=== PATIENT | female | born 1950 | race Caucasian/White ===

== ENCOUNTER 2020-01-12 15:36 | Outpatient (CLI) | payer MEDICARE, OTHER ==
[2020-01-12 18:35] LABS: BASOPHILS % (AUTO) 0.8 %; EOSINOPHILS # (AUTO) 0.1 10^3/uL (0.0-0.7); EOSINOPHILS % (AUTO) 2.3 %; HGB - HEMOGLOBIN 12.6 g/dL (12.0-16.0); LYMPHOCYTES # (AUTO) 1.9 10^3/uL (1.5-3.5); LYMPHOCYTES % (AUTO) 39.2 %; MEAN CORPUSCULAR HEMOGLOBIN 31.6 pg (27.0-31.0); MEAN CORPUSCULAR HGB CONC 32.9 g/dL (32.0-36.0); MEAN PLATELET VOLUME 10.5 fL (7.9-10.8); MONOCYTES # (AUTO) 0.3 10^3/uL (0.0-1.0); MONOCYTES % (AUTO) 6.9 %; NEUTROPHILS # (AUTO) 2.4 10^3/uL (1.5-6.6); NEUTROPHILS % (AUTO) 50.4 %; PLT - PLATELET COUNT 265 10^3/uL (130-450); RED BLOOD COUNT 3.99 10^6/uL (4.20-5.40); RED CELL DISTRIBUTION WIDTH 13.2 % (12.0-15.0); WHITE BLOOD COUNT 4.8 x10^3/uL (4.8-10.8)
[2020-01-12 19:03] LABS: ALBUMIN 4.7 g/dL (3.2-5.5); ALBUMIN/GLOBULIN RATIO 2.1 (1.0-2.2); BILIRUBIN,TOTAL 0.8 mg/dL (0.2-1.0); CREATININE 0.8 mg/dL (0.4-1.0); TOTAL PROTEIN 6.9 g/dL (6.7-8.2)
== END 2020-01-12 23:59 | disposition home or self-care (01) ==
LOC: LAB.WCP 15:36
PROVIDERS: ATTEND Physician Assistant
DX: I10 Essential (primary) hypertension (principal); E83.119 Hemochromatosis, unspecified
CPT/HCPCS: 36415; 80053; 82728; 83540; 84466; 85025

== ENCOUNTER 2020-04-29 12:26 | Outpatient (CLI) | payer MEDICARE, OTHER ==
--- NOTE | 2020-05-14 09:43 | Mammography Report ---
BILATERAL DIGITAL SCREENING MAMMOGRAM 3D/2D WITH CAD: 04/29/2020 CLINICAL: Routine screening. Comparison: 04/10/19, 03/29/17, 03/12/16, 01/25/15. There are scattered fibroglandular elements in both breasts. Current study was also evaluated with a Computer Aided Detection (CAD) system. No significant masses, calcifications, or other findings are seen in either breast. IMPRESSION: NEGATIVE There is no mammographic evidence of malignancy. A 1 year screening mammogram is recommended. This exam was interpreted at Station ID: [id number]. NOTE: For mammograms, a report in lay terms will be sent to the patient. Approximately 15% of breast malignancies will not be visualized mammographically. In the management of a palpable breast mass, a negative mammogram must not discourage biopsy of a clinically suspicious lesion. Electronically Signed By: Khari Ames M.D. aty/:05/13/2020 14:04:43 ACR BI-RADS Category 1: Negative 3341F PARENCHYMAL PATTERN: (A) - The breast(s) demonstrate(s) scattered fibroglandular densities. BI-RADS CATEGORY: (1) - 1 RECOMMENDATION: (ANNUAL) - Recommend routine annual screening mammography. [id number] 1 year screening LATERALITY: (B)
== END 2020-04-29 12:27 | disposition home or self-care (01) ==
LOC: DI 12:26
DX: Z12.31 Encounter for screening mammogram for malignant neoplasm of breast (principal)
CPT/HCPCS: 77063; 77067

== ENCOUNTER 2020-06-12 09:38 | Outpatient (CLI) | payer MEDICARE, OTHER ==
--- NOTE | 2020-06-12 11:36 | XRAY Report ---
Reason: LEFT HIP PAIN Procedure Date: 06/12/2020 Accession Number: [id number] / [id number] Procedure: WCP - Hip 1 View LT CPT Code: Final Report FULL RESULT: PROCEDURE: Hip 1 View LT INDICATIONS: LEFT HIP PAIN TECHNIQUE: 2 views of the hip were acquired. COMPARISON: Lumbosacral spine plain film same day. FINDINGS: Bones: No fractures or dislocations. Note is made of symmetric hip joint osteoarthritis, mild bilaterally. No suspicious bony lesions. The visualized pelvic ring appears intact. Soft tissues: No suspicious soft tissue calcifications or masses are seen within the abdomen. At the pelvis was likely is dystrophic calcifications within midline uterine fibroids are present. Alternatively, bladder calculus could produce this appearance. IMPRESSION: Symmetric mild hip joint osteoarthritis, no trauma found. There are midline low pelvic calcifications, of uncertain etiology but potentially from uterine fibroids or bladder calculi. Reviewed by: Ki Terrell MD on 06/12/2020 11:34 AM PDT Approved by: Ki Terrell MD on 06/12/2020 11:34 AM PDT Station ID: [id number]
--- NOTE | 2020-06-12 11:39 | XRAY Report ---
Reason: LUMBAR BACK PAIN Procedure Date: 06/12/2020 Accession Number: [id number] / [id number] Procedure: WCP - Lumbar Spine 2 View CPT Code: Final Report FULL RESULT: PROCEDURE: Lumbar Spine 2 View INDICATIONS: LUMBAR BACK PAIN TECHNIQUE: 2 views of the lumbar spine were acquired. COMPARISON: None. FINDINGS: Bones: 5 [id number] vertebrae are present. There is normal bony alignment. No vertebral body compression fractures. No suspicious bony lesions. Note is made of only a minimal degree of degenerative disc height reduction but facet osteoarthritis is moderate to moderately severe over the middle and lower thirds of the lumbosacral spine, respectively. This allows slight anterolisthesis of L4 on L5 and L5 on S1.. Soft tissues: Overlying bowel gas pattern is normal. No suspicious soft tissue calcifications. IMPRESSION: Minimal degenerative disc disease but facet osteoarthritis is moderate to moderately severe over the middle and lower thirds of the lumbosacral spine, respectively. Spinal and foraminal stenosis would likely be present at L5-S1 by appearance. Reviewed by: Ki Terrell MD on 06/12/2020 11:38 AM PDT Approved by: Ki Terrell MD on 06/12/2020 11:38 AM PDT Station ID: [id number]
== END 2020-06-12 23:59 | disposition home or self-care (01) ==
LOC: DI.WCP 09:38
PROVIDERS: ATTEND Family Medicine
DX: M16.12 Unilateral primary osteoarthritis, left hip (principal); M51.36 Other intervertebral disc degeneration, lumbar region; M47.816 Spondylosis without myelopathy or radiculopathy, lumbar region; M47.817 Spondylosis without myelopathy or radiculopathy, lumbosacral region; M43.17 Spondylolisthesis, lumbosacral region; M43.16 Spondylolisthesis, lumbar region
CPT/HCPCS: 72100

== ENCOUNTER 2020-08-09 13:39 | Outpatient (CLI) | payer MEDICARE, OTHER | END 2020-08-09 23:59 | disposition home or self-care (01) | LOC: LAB.WCP 13:39 | PROVIDERS: ATTEND Physician Assistant Medical | DX: E83.119 Hemochromatosis, unspecified (principal) | CPT/HCPCS: 36415; 82728 ==

== ENCOUNTER 2020-08-19 16:59 | Emergency (ER) | payer MEDICARE, OTHER ==
--- NOTE | 2020-08-19 17:03 | ED Physician Documentation ---
PD HPI UPPER EXT INJURY - Stated complaint Stated Complaint: R ARM PAIN,FALL - History obtained from History obtained from: Patient - History of Present Illness Location: Right, Forearm, Wrist, Other (also struck face on groound.) Type of injury: Fall (She is out for a walk with her and tripped on a uneven ground spot and fell forward onto her right outstretched hand and did strike her face.) Where injury occurred: [place] Tim[place] - onset: Today Timing - details: Abrupt onset Worsened by: Moving (right wrist and forearm, mainly hurts with supination.), Palpating Contributing factors: No: Anticoagulated, Work related Similar symptoms before: Has not had sx before Review of Systems Constitutional: denies: Fever Nose: denies: Rhinorrhea / runny nose, Congestion Throat: denies: Dental pain / toothache, Sore throat Cardiac: denies: Chest pain / pressure GI: denies: Abdominal Pain Neurologic: denies: Focal weakness, Numbness, Altered mental status, Headache (just sore at abraded area of forehead), LOC PD PAST MEDICAL HISTORY - Past Medical History Past Medical History: No - Present Medications Home Medications: Ambulatory Orders Medication Instructions Recorded Confirmed Chlorthalidone 25 mg ORAL BID 08/19/20 08/19/20 Meloxicam [Mobic] 15 mg PO DAILY 08/19/20 08/19/20 Naproxen [Naprosyn] 500 mg PO BID PRN 08/19/20 08/19/20 Pantoprazole [Protonix] 40 mg PO DAILY 08/19/20 08/19/20 Solifenacin Succinate [Vesicare] 10 mg ORAL DAILY 08/19/20 08/19/20 - Allergies Allergies/Adverse Reactions: Allergies Allergy/AdvReac Type Severity Reaction Status Date / Time Sulfa (Sulfonamide Allergy Hives Verified 08/19/20 17:03 Antibiotics) PD ED PE NORMAL - Vitals Vital signs reviewed: Yes - General General: Alert and oriented X 3, Well developed/nourished - HEENT HEENT: PERRL, EOMI, Dentition benign, Other (abrasion upper lip and forehead. No loose teeth. ) - Neck Neck: Supple, no meningeal sign, No bony TTP - Derm Derm: Normal color, Warm and dry - Extremities Extremities: Other (There is an abrasion on the palm of the right hand. No tenderness in the hand itself. There is some tenderness on the radial side of the dorsal wrist and distal forearm. The elbow is not tender and there is no tenderness or effusion at the radial head. Passive range of motion less painful. ) - Neuro Neuro: Alert and oriented X 3, No motor deficit, No sensory deficit Eye Opening: Spontaneous Motor: Obeys Commands Verbal: Oriented GCS Score: 15 Results - Vitals Vitals: Oxygen O2 Source Room air - Rads (name of study) right forearm Radiology: Prelim report reviewed (no fractures), See rad report PD MEDICAL DECISION MAKING - ED course Complexity details: reviewed results, re-evaluated patient (velcro wrist splint and sling are making her feel much better. ), considered differential, d/w patient Departure - Departure Disposition: 01 Home, Self Care Clinical Impression: Accidental fall Qualifiers: Encounter type: initial encounter Qualified Code(s): W19.XXXA - Unspecified fall, initial encounter Facial abrasion Qualifiers: Encounter type: initial encounter Qualified Code(s): S00.81XA - Abrasion of other part of head, initial encounter Right wrist sprain Qualifiers: Encounter type: initial encounter Qualified Code(s): S63.501A - Unspecified sprain of right wrist, initial encounter Condition: Stable Record reviewed to determine appropriate education?: Yes Instructions: ED Sprain Wrist Follow-Up: Jess Atkinson PA [Primary Care Provider] - Comments: Cleanse the abrasions with soap and water couple of times a day and apply some ointment. Tylenol if needed for pains. The x-ray of your forearm does not show any fractures. Presume some muscle strain. Use the splint and/or sling as needed for comfort and protecting motion. I would anticipate improvement over the next several days and resolved within a week. Recheck if not better in that timeframe. Discharge Date/Time: 08/19/20 18:05
[2020-08-19] MEDS ORDERED: ACETAMINOPHEN 325 MG TABLET PO STA (17:20)
--- NOTE | 2020-08-19 17:37 | XRAY Report ---
PROCEDURE: Forearm RT INDICATIONS: FOOSH to right arm TECHNIQUE: 2 views of the forearm were acquired. COMPARISON: None FINDINGS: Bones: No fractures or dislocations. No suspicious bony lesions. Soft tissues: No suspicious soft tissue calcifications or masses. IMPRESSION: No acute forearm fracture or dislocation. Reviewed by: Jemal Espinoza MD on 08/19/2020 5:36 PM PDT Approved by: Jemal Espinoza MD on 08/19/2020 5:36 PM PDT Station ID: [id number]
[2020-08-19 18:04] VITALS: BP 138/83
== END 2020-08-19 18:05 | disposition home or self-care (01) ==
LOC: ED 16:59
DX: S63.501A Unspecified sprain of right wrist, initial encounter (principal); S00.81XA Abrasion of other part of head, initial encounter; S60.511A Abrasion of right hand, initial encounter; S00.511A Abrasion of lip, initial encounter; W01.0XXA Fall on same level from slipping, tripping and stumbling without subsequent striking against object, initial encounter; Y93.01 Activity, walking, marching and hiking; Y92.830 Public park as the place of occurrence of the external cause
CPT/HCPCS: 73090; 99282; 99283; A9270

== ENCOUNTER 2020-12-06 09:51 | Outpatient (CLI) | payer MEDICARE, OTHER | END 2020-12-06 09:52 | disposition home or self-care (01) | LOC: LAB 09:51 | PROVIDERS: ATTEND Internal Medicine Cardiovascular Disease | DX: I10 Essential (primary) hypertension (principal) | CPT/HCPCS: 36415; 82088; 82384; 82533; 84244 ==

== ENCOUNTER 2021-03-11 10:22 | Outpatient (CLI) | payer MEDICARE, OTHER ==
[2021-03-11 18:09] LABS: BASOPHILS % (AUTO) 0.9 %; EOSINOPHILS # (AUTO) 0.2 10^3/uL (0.0-0.7); EOSINOPHILS % (AUTO) 3.4 %; HCT - HEMATOCRIT 39.5 % (37.0-47.0); HGB - HEMOGLOBIN 12.9 g/dL (12.0-16.0); LYMPHOCYTES # (AUTO) 1.6 10^3/uL (1.5-3.5); LYMPHOCYTES % (AUTO) 36.3 %; MEAN CORPUSCULAR HEMOGLOBIN 30.9 pg (27.0-31.0); MEAN CORPUSCULAR HGB CONC 32.7 g/dL (32.0-36.0); MEAN CORPUSCULAR VOLUME 94.7 fL (81.0-99.0); MEAN PLATELET VOLUME 10.7 fL (7.9-10.8); MONOCYTES # (AUTO) 0.4 10^3/uL (0.0-1.0); MONOCYTES % (AUTO) 8.6 %; NEUTROPHILS # (AUTO) 2.2 10^3/uL (1.5-6.6); NEUTROPHILS % (AUTO) 50.6 %; PLT - PLATELET COUNT 260 10^3/uL (130-450); RED BLOOD COUNT 4.17 10^6/uL (4.20-5.40); RED CELL DISTRIBUTION WIDTH 13.1 % (12.0-15.0); WHITE BLOOD COUNT 4.4 x10^3/uL (4.8-10.8)
[2021-03-11 18:35] LABS: % IRON SATURATION 49 % (20-50); ALBUMIN 4.7 g/dL (3.2-5.5); ALBUMIN/GLOBULIN RATIO 1.8 (1.0-2.2); ALKALINE PHOSPHATASE 73 IU/L (42-121); ALT ALANINE AMINOTRANSFERASE 20 IU/L (10-60); AST ASPARTATE AMINOTRANSFERASE 28 IU/L (10-42); BILIRUBIN,TOTAL 1.1 mg/dL (0.2-1.0); BUN - BLOOD UREA NITROGEN 25 mg/dL (6-20); CALCIUM 9.4 mg/dL (8.5-10.3); CARBON DIOXIDE - CO2 25 mmol/L (21-32); CHLORIDE 100 mmol/L (101-111); CHOL/HDL RATIO 5.9 (<4.4); CHOLESTEROL 354 mg/dL; CREATININE 0.8 mg/dL (0.4-1.0); GFR - MDRD 71 (>89); GLUCOSE 92 mg/dL (70-100); HDL CHOLESTEROL 60 mg/dL; IRON 162 ug/dL (28-170); LDL CHOLESTEROL,CALCULATED 264 mg/dL; LDL/HDL RATIO 4.4 (<4.4); POTASSIUM 3.8 mmol/L (3.5-5.0); SODIUM 135 mmol/L (135-145); TOTAL IRON BINDING CAPACITY 328 ug/dL (250-450); TOTAL PROTEIN 7.3 g/dL (6.7-8.2); TRANSFERRIN 234 mg/dL (192-382); TRIGLYCERIDES 152 mg/dL; VLDL CHOLESTEROL 30 mg/dL
== END 2021-03-11 23:59 | disposition home or self-care (01) ==
LOC: LAB.WCP 10:22
PROVIDERS: ATTEND Family Medicine
DX: E83.119 Hemochromatosis, unspecified (principal); E78.5 Hyperlipidemia, unspecified
CPT/HCPCS: 36415; 80053; 80061; 82728; 83540; 83721; 84466; 85025

== ENCOUNTER 2023-09-08 10:20 | Outpatient (CLI) | payer MEDICARE, OTHER ==
--- NOTE | 2023-09-08 11:39 | XRAY Report ---
PROCEDURE: Chest 2 View X-Ray INDICATIONS: COUGH UNSPECIFIED TECHNIQUE: 2 views of the chest were acquired. COMPARISON: None. FINDINGS: Surgical changes and devices: None. Lungs and pleura: No pleural effusions or pneumothorax. Lungs are clear. Mediastinum: Normal heart size Bones and chest wall: Degenerative changes IMPRESSION: No acute radiographic abnormality. Reviewed by: Anthony Lang MD on 09/08/2023 11:37 AM PDT Approved by: Anthony Lang MD on 09/08/2023 11:37 AM PDT Station ID: [id number]
== END 2023-09-08 10:21 | disposition home or self-care (01) ==
LOC: DI 10:20
PROVIDERS: ATTEND Internal Medicine
DX: R05.9 Cough, unspecified (principal)